=== PATIENT | female | born 1985 | race Caucasian/White ===

== ENCOUNTER 2022-09-21 20:24 | Emergency (ER) | payer MEDICAID ==
[~2022-09-21] VITALS: Ht 149.9 cm; Wt 62.4 kg
[2022-09-21] MEDS ORDERED: TETANUS, DIPHTHERIA, PERTUSSIS VAC/PF 0.5ML (>10YR OLD) IM ONE (21:30)
[2022-09-21] MEDS ORDERED: IBUP-2029 MT (21:30)
[2022-09-21] MEDS ORDERED: AMOX1TAB16 MT (21:30)
[2022-09-21] MEDS ORDERED: IBUPROFEN 600MG TABLET PO ONE (21:30)
[2022-09-21 22:09] VITALS: BP 122/77
== END 2022-09-21 22:11 | disposition home or self-care (01) ==
LOC: ER 20:24
DX: S70.311A Abrasion, right thigh, initial encounter (principal); Z98.890 Other specified postprocedural states; W54.0XXA Bitten by dog, initial encounter; Y93.89 Activity, other specified; Y92.89 Other specified places as the place of occurrence of the external cause
CPT/HCPCS: 90471; 90715; 99283

== ENCOUNTER 2022-10-19 15:38 | Emergency (ER) | payer MEDICAID ==
[~2022-10-19] VITALS: Ht 149.9 cm; Wt 46.0 kg
[~2022-10-19 15:38] MED LIST: AMOX1TAB16 MT; IBUP-2029 MT
[2022-10-19 15:47] VITALS: BP 126/71
[2022-10-19] MEDS ORDERED: AMOXICILLIN 500 MG CAPSULE PO ONE (17:00)
[2022-10-19] MEDS ORDERED: IBUPROFEN 600MG TABLET PO ONE (17:00)
[2022-10-19] MEDS ORDERED: IBUP-2028 MT (17:08)
[2022-10-19] MEDS ORDERED: AMOX1TAB16 MT (17:08)
[2022-10-19] MEDS ORDERED: TOPUD PO (17:08)
== END 2022-10-19 17:35 | disposition home or self-care (01) ==
LOC: ER 15:38
DX: K02.9 Dental caries, unspecified (principal); J45.909 Unspecified asthma, uncomplicated; Z20.822 Contact with and (suspected) exposure to COVID-19; Z98.890 Other specified postprocedural states
CPT/HCPCS: 87426; 99283; C9803